=== PATIENT | female | born 1995 | race American Indian/Alaskan Native ===

== ENCOUNTER 2020-10-16 21:33 | Inpatient (IN) | payer MEDICAID ==
[2020-10-16 23:43] LABS: Hematocrit 33.9 % (30.3-42.9); Hemoglobin 11.4 gm/dl (10.1-14.3); Mean Corpuscular HGB Conc 34 % (30-34); Mean Corpuscular Volume 82 fl (79-97); Platelet Count 424 K/mm3 (140-440); Red Blood Count 4.15 M/mm3 (3.65-5.03); Red Cell Distribution Width 16.8 % (13.2-15.2)
[2020-10-17] MEDS ORDERED: LIDOCAINE (2%) 20 MG/1 ML VIAL 20 ML MDV INFILTRATI ONE (00:09)
[2020-10-17] MEDS ORDERED: miSOPROStol 200 MCG TAB PR PRN (00:09)
[2020-10-17] MEDS ORDERED: AMPICILLIN/NS 2 GM/100 ML 2 GM/100 ML BAG IV ONE ×2 (00:09→06:37)
[2020-10-17] MEDS ORDERED: MINERAL OIL 30 ML ORAL LIQD PO PRN (00:09)
[2020-10-17] MEDS ORDERED: TERBUTALINE 1 MG/1 ML INJ SUB-Q PRN (00:09)
[2020-10-17] MEDS ORDERED: LOPERAMIDE 2 MG CAP PO PRN (00:09)
[2020-10-17] MEDS ORDERED: ePHEDrine SULFATE 50 MG/1 ML INJ IV PRN (00:09)
[2020-10-17] MEDS ORDERED: METHYLERGONOVINE MALEATE 0.2 MG/ML VIAL IM PRN (00:09)
[2020-10-17] MEDS ORDERED: BUTORPHANOL 2 MG/1 ML INJ IV PRN (00:09)
[2020-10-17] MEDS ORDERED: OXYTOCIN 10 UNIT/1 ML INJ IM PRN (00:09)
[2020-10-17] MEDS ORDERED: fentaNYL 100 MCG/2 ML INJ IV PRN (00:09)
[2020-10-17] MEDS ORDERED: CARBOPROST TROMETHAMINE 250 MCG/1 ML INJ IM PRN (00:09)
[2020-10-17] MEDS: BUTORPHANOL 2 MG/1 ML INJ IV PRN ×2 (00:22→02:54)
[2020-10-17] MEDS: LACTATED RINGERS 1,000 ML IV SCH ×5 (00:27→12:40)
[2020-10-17] MEDS ORDERED: OXYTOCIN DRIP 30 UNITS/500 ML BAG IV SCH ×2 (01:00)
[2020-10-17] MEDS ORDERED: NALOXONE 2 MG/2 ML INJ IV PRN (07:16)
--- NOTE | 2020-10-17 07:16 | Anesthesia Consultation ---
Anesthesia Consult and Med Hx Date of service: 10/17/20 - Airway Anesthetic Teeth Evaluation: Good ROM Head & Neck: Adequate Mental/Hyoid Distance: Adequate Mallampati Class: Class II Intubation Access Assessment: Probably Good - Pulmonary Exam CTA: Yes - Cardiac Exam Cardiac Exam: RRR - Pre-Operative Health Status ASA Pre-Surgery Classification: ASA2 Proposed Anesthetic Plan: Epidural - Pulmonary Hx Asthma: No COPD: No Hx Pneumonia: No - Cardiovascular System Hx Hypertension: No - Central Nervous System Hx Seizures: No Hx Psychiatric Problems: No (ANXIETY) - Endocrine Hx Renal Disease: No Hx End Stage Renal Disease: No Hx Hypothyroidism: No Hx Hyperthyroidism: No - Hematic Hx Anemia: No Hx Sickle Cell Disease: No - Other Systems Hx Alcohol Use: No
[2020-10-17] MEDS ORDERED: fentaNYL-BUPIV 2 MCG/ML-0.125% 200 MCG/100 ML BAG EPIDURAL SCH (08:00)
[2020-10-17] MEDS: ePHEDrine SULFATE 50 MG/1 ML INJ IV PRN ×3 (08:08→08:33)
--- NOTE | 2020-10-17 08:14 | Progress Note ---
Labor Epidural - Labor Epidural Start Time: 07:25 Stop Time: 07:52 Performed by:: JOYCE COSTELLO Procedure: Patient is requesting epidural for labor pain. H&P, and labs reviewed. Procedure explained, questions answered, consent obtained. Patient in sitting position with blood pressure cuff and pulse ox on and working. Timeout performed immediately before start of procedure. Sterile chlorahexadine 0.5% prep/drape. 3 mL 1% lidocaine skin wheal at L[3]-L[4]. 18-gauge [employer] epidural needle advanced to [id number] with saline at [7] cm. Epidural catheter advanced to [12] cm, negative aspiration for blood and csf, negative test dose 3 ml 1.5% lidocaine with epinephrine. Epidural dexmedetomidine [30] mcg administered. Sterile steri-strips and tegaderm applied, followed by tape reinforcement. Patient tolerated procedure well. Sima ORO
[2020-10-17] MEDS ORDERED: AMPICILLIN/NS 1 GM/50 ML 1 GM/50 ML BAG IV SCH (11:00)
--- NOTE | 2020-10-17 13:47 | History and Physical Report ---
History of Present Illness Date of examination: 10/17/20 Date of admission: 10/16/20 21:43 Chief complaint: I am having contractions History of present illness: Patient is 25-year-old 1 para 0 presents at 40-5/7 weeks for induction of labor secondary to oligohydramnios found on ultrasound. Prior to presenting to the hospital she began having contractions as well. Her course was complicated by late presentation to care at 22 weeks. Labs have been otherwise normal. Her GBS is positive. She has had no additional complaints with this . Past History Past Medical History: no pertinent history, other (anxiety) Past Surgical History: no surgical history Family/Genetic History: none Social history: - Obstetrical History Expected Date of Delivery: 10/11/20 Actual Gestation: 40 Week(s) 6 Day(s) : 1 Para: 0 Medications and Allergies Allergies Allergy/AdvReac Type Severity Reaction Status Date / Time No Known Allergies Allergy Verified 10/17/20 00:17 Home Medications Medication Instructions Recorded Confirmed Last Taken Type One Daily Tablet 1 tab PO DAILY 10/16/20 10/16/20 Unknown History Active Meds: Active Medications Butorphanol Tartrate (Butorphanol 2 Mg/1 Ml Inj) 1 mg IV Q2H PRN PRN Reason: Pain, Moderate(4-6) LABOR PAIN Butorphanol Tartrate (Butorphanol 2 Mg/1 Ml Inj) 2 mg IV Q2H PRN PRN Reason: Pain , Severe (7-10) Last Admin: 10/17/20 02:54 Dose: 2 mg Documented by: Carboprost Tromethamine (Carboprost Tromethamine 250 Mcg/1 Ml Inj) 250 mcg IM ONCE PRN PRN Reason: Uterine Bleeding Fentanyl (Fentanyl 100 Mcg/2 Ml Inj) 100 mcg IV Q2H PRN PRN Reason: Pain,Severe (7-10) LABOR PAIN Last Admin: 10/17/20 06:30 Dose: 100 mcg Documented by: Oxytocin/Sodium Chloride (Pitocin/Ns 30 Unit/500ml) 30 units in 500 mls @ 2 mls/hr IV TITR [facility]; Protocol Last Titration: 10/17/20 13:17 Dose: 12 ml/hr, 12 mls/hr Documented by: Lactated Ringer's (Lactated Ringers) 1,000 mls @ 125 mls/hr IV DIRECT [facility]YN Last Admin: 10/17/20 12:40 Dose: 125 mls/hr Documented by: Oxytocin/Sodium Chloride (Pitocin/Ns 30 Unit/500ml) 30 units in 500 mls @ 40 mls/hr IV TITR [facility]; Protocol Ampicillin Sodium (Ampicillin/Ns 1 Gm/50 Ml) 1 gm in 50 mls @ 100 mls/hr IV Q4H [facility]; Protocol Last Admin: 10/17/20 11:23 Dose: 100 mls/hr Documented by: Fentanyl/Bupivacaine/Sodium Chlor (Fentanyl-Bupiv 2 Mcg/Ml-0.125%) 200 mcg in 100 mls @ 12 mls/hr EPIDURAL TITR [facility]; Protocol Last Admin: 10/17/20 08:03 Dose: 12 mls/hr Documented by: Loperamide HCl (Loperamide 2 Mg Cap) 2 mg PO ONCE PRN PRN Reason: give with Hemabate Methylergonovine Maleate (Methylergonovine Maleate 0.2 Mg/Ml Vial) 0.2 mg IM ONCE PRN PRN Reason: Uterine Bleeding Mineral Oil (Mineral Oil 30 Ml Oral Liqd) 30 ml PO QHS PRN PRN Reason: Constipation Misoprostol (Misoprostol 200 Mcg Tab) 800 mcg VT ONCE PRN PRN Reason: Uterine Bleeding Naloxone HCl (Naloxone 2 Mg/2 Ml Inj) 0.2 mg IV Q5M PRN PRN Reason: Respiratory sedation Oxytocin (Oxytocin 10 Unit/1 Ml Inj) 10 unit IM ONCE PRN PRN Reason: Uterine Bleeding Terbutaline Sulfate (Terbutaline 1 Mg/1 Ml Inj) 0.25 mg SUB-Q ONCE PRN PRN Reason: Hyperstimulation/Hypertonicity Review of Systems All systems: negative Constitutional: weight gain Genitourinary: contractions - Vital Signs Vital signs: Vital Signs Pulse Pulse Ox 56 L 90 10/16/20 22:00 10/16/20 22:00 Temp Pulse Resp BP Pulse Ox 97.4 F L 80 20 104/52 100 10/17/20 13:23 10/17/20 13:44 10/17/20 09:11 10/17/20 13:37 10/17/20 13:44 - Physical Exam Breasts: Positive: deferred Cardiovascular: Regular rate, Normal S1, Normal S2 Lungs: Positive: Clear to auscultation, Normal air movement Abdomen: Positive: normal appearance, soft, normal bowel sounds. Negative: distention, tenderness Genitourinary (Female): Positive: normal external genitalia, normal perenium Vulva: both: normal Vagina: Positive: normal moisture. Negative: discharge Cervix: Negative: lesion, discharge Uterus: Positive: normal size, normal contour Adnexa: both: normal Anus/Rectum: Positive: normal perianal skin, heme negative. Negative: rectal mass, hemorrhoids Extremities: Deep Tendon Reflex Grade: Normal +2 - Obstetrical FHR: auscultation normal Cervical Dilatation: 1.5 Cervical Effacement Percentage: 80 station: -2 Uterine Contraction Pattern: Regular Results Result Diagrams: 10/16/20 22:50 Abnormal lab results 10/16/20 Range/Units 22:50 RDW 16.8 H (13.2-15.2) % All other labs normal. Assessment and Plan IUP at 40-5/7 weeks here for augmentation of labor/induction secondary to oligohydramnios in early phase labor. Will admit for same. We will begin ampicillin for GBS treatment. Srom when able. Anticipate .
--- NOTE | 2020-10-17 16:17 | Procedure Note ---
OB Delivery Note - Delivery Date of Delivery: 10/17/20 Surgeon: CLARISA SERNA Estimated blood loss: 200cc - Vaginal Delivery presentation: vertex Delivery position: OA Intrapartum events: none Delivery induction: none Delivery augmentation: rupture of membranes, pitocin Delivery monitor: external FHT, external uterine Route of delivery: Delivery placenta: spontaneous Delivery cord: 3 umbilical vessels Episiotomy: none Delivery laceration: none Anesthesia: none, epidural Delivery comments: Viable male delivered over intact perineum without difficulty. Weight 7 pounds 13 ounces, 3541 g. No nuchal cord noted. had spontaneous cry and was placed on maternal abdomen. Cord was clamped and cut when done pulsating. Placenta was delivered spontaneously and intact with three-vessel cord. No lacerations were noted. There was excellent hemostasis. The patient tolerated procedure well. - Infant A at 1 minute: 8 at 5 minutes: 9 (7 pounds 13 ounces) Infant Gender: Male
[2020-10-17] MEDS ORDERED: PROMETHAZINE 25 MG TAB PO PRN (18:35)
[2020-10-17] MEDS ORDERED: PROMETHAZINE 25 MG RECT SUPP PR PRN (18:35)
[2020-10-17] MEDS ORDERED: MAGNESIUM HYDROXIDE (MOM) ORAL LIQD UDC PO PRN (18:35)
[2020-10-17] MEDS ORDERED: LANOLIN/ZINC/DIMETHICONE (LANSINOH) 7 GM TP PRN (18:35)
[2020-10-17] MEDS ORDERED: diphenhydrAMINE 25 MG CAP PO PRN (18:35)
[2020-10-17] MEDS ORDERED: WITCH HAZEL/ GLYCERIN PAD TP PRN (18:35)
[2020-10-17] MEDS ORDERED: ONDANSETRON 4 MG/2 ML INJ IV PRN (18:35)
[2020-10-17] MEDS: HYDROcodone/ACETAMINOPHEN 5-325 MG TAB PO PRN (18:47)
[2020-10-17] MEDS: IBUPROFEN 600 MG TAB PO SCH (22:15)
[2020-10-17] MEDS: DOCUSATE SODIUM 100 MG CAP PO SCH (22:16)
[2020-10-18] MEDS: IBUPROFEN 600 MG TAB PO SCH ×4 (05:35→23:12)
[2020-10-18] MEDS: HYDROcodone/ACETAMINOPHEN 5-325 MG TAB PO PRN ×2 (05:56→14:27)
[2020-10-18 06:33] LABS: Hematocrit 28.9 % (30.3-42.9); Hemoglobin 9.5 gm/dl (10.1-14.3)
--- NOTE | 2020-10-18 10:13 | Post Anesthesia Evaluation ---
- Post Anesthesia Evaluation Patient Participated: Yes Airway Patent: Yes Stable Respiratory Function: Yes Nausea/Vomiting: No Temp > 96.8F: Yes Pain Manageable: Yes Adequeate Hydration: Yes Anesthesia Complications: No Block Receding Appropriately: Yes
[2020-10-18] MEDS: PRENATAL VIT27-FE FUMARATE-FOLIC ACID VIT TAB PO SCH (14:27)
--- NOTE | 2020-10-18 14:35 | Progress Note ---
Assessment and Plan PPD 1 s/p . Pt is well. Baby is doing well but is unable to be discharged today. Subjective - Subjective Date of service: 10/18/20 Interval history: Pt is PPD 1 s/p . Patient having complaint of back pain. Patient reports: appetite normal, voiding normally : doing well Objective - Vital Signs Latest vital signs: Vital Signs Temp Pulse Resp BP BP Pulse Ox 10/18/20 08:10 97.9 F 73 20 110/76 10/18/20 00:45 97.7 F 86 20 127/68 100 10/17/20 18:15 97.9 F 86 17 109/56 100 10/17/20 17:48 97.9 F 90 14 104/62 98 10/17/20 17:47 95 H 104/62 10/17/20 17:44 94 H 100 10/17/20 17:39 90 100 10/17/20 17:34 99 H 100 10/17/20 17:29 91 H 100 10/17/20 17:24 103 H 100 10/17/20 17:19 104 H 100 10/17/20 17:14 106 H 100 10/17/20 17:09 104 H 100 10/17/20 17:04 104 H 100 10/17/20 16:59 96 H 100 10/17/20 16:54 93 H 99 10/17/20 16:52 101 H 133/68 10/17/20 16:49 97 H 100 10/17/20 16:44 87 100 10/17/20 16:39 91 H 98 10/17/20 16:37 116 H 134/73 10/17/20 16:34 98 H 99 10/17/20 16:29 87 100 10/17/20 16:24 103 H 100 10/17/20 16:23 99 H 91 10/17/20 16:22 98 H 126/64 10/17/20 16:19 93 H 98 10/17/20 16:16 95 H 92 10/17/20 16:14 95 H 100 10/17/20 16:09 99 H 100 10/17/20 16:08 85 121/58 10/17/20 16:04 95 H 100 10/17/20 16:02 98 H 140/60 10/17/20 15:59 97 H 94 10/17/20 15:54 97 H 100 10/17/20 15:52 100 H 122/65 10/17/20 15:51 103 H 116/65 10/17/20 15:49 103 H 100 10/17/20 15:44 122 H 100 10/17/20 15:39 142 H 100 10/17/20 15:34 144 H 100 10/17/20 15:29 133 H 100 10/17/20 15:24 148 H 100 10/17/20 15:23 113 H 91 10/17/20 15:19 117 H 100 10/17/20 15:14 122 H 100 10/17/20 15:11 135 H 85 10/17/20 15:09 121 H 100 10/17/20 15:04 118 H 100 10/17/20 14:59 140 H 100 10/17/20 14:54 126 H 100 10/17/20 14:53 134 H 113/68 10/17/20 14:49 138 H 100 10/17/20 14:44 112 H 100 10/17/20 14:39 130 H 100 10/17/20 14:34 100 H 100 Intake and Output 10/17/20 10/18/20 10/18/20 22:59 06:59 14:59 Intake Total 240 240 Output Total 700 800 Balance -700 -560 240 Intake: Oral 240 240 Output: Urine 700 800 Void 700 800 Other: Total, Intake Amount 240 240 Total, Output Amount 700 800 # Voids Void 3 1 - Exam Breasts: Present: deferred Cardiovascular: Present: Regular rate, Normal S1, Normal S2 Lungs: Present: Clear to auscultation, Normal air movement Abdomen: Present: normal appearance, soft, normal bowel sounds Uterus: Present: normal, firm Extremities: Present: normal - Labs Labs: Abnormal lab results 10/18/20 Range/Units 05:31 Hgb 9.5 L (10.1-14.3) gm/dl Hct 28.9 L (30.3-42.9) %
--- NOTE | 2020-10-18 14:38 | Discharge Summary ---
Providers - Providers Date of Admission: 10/16/20 21:43 Date of discharge: 10/19/20 Attending physician: CLARISA SERNA Primary care physician: KRYSTLE ELLIS MD Hospitalization Reason for admission: induction of labor Delivery: Laceration: 1st degree Other procedures: none complications: none Discharge diagnosis: IUP at term delivered [place] baby: male Hospital course: unremarkable Condition at discharge: Good Disposition: DC-01 TO HOME OR SELFCARE Plan - Provider Discharge Summary Activity: routine, no sex for 6 weeks, no heavy lifting 4 weeks, no strenuous exercise Diet: routine Instructions: routine Additional instructions: [] Smoking cessation referral if applicable(refer to patient education folder for contact #) [] Refer to [facility] Booklet Call your doctor immediately for: * Fever > 100.5 * Heavy vaginal bleeding ( >1 pad per hour) * Severe persistent headache * Shortness of breath * Reddened, hot, painful area to leg or breast * Drainage or odor from incision. * Keep incision clean and dry at all times and follow doctor's instructions regarding bathing/showering - Follow up plan Follow up: PRIMARY CAREMD [Primary Care Provider] - 6 Weeks
[2020-10-18] MEDS: DOCUSATE SODIUM 100 MG CAP PO SCH (18:58)
[2020-10-19] MEDS: DOCUSATE SODIUM 100 MG CAP PO SCH (00:13)
[2020-10-19] MEDS: IBUPROFEN 600 MG TAB PO SCH ×2 (05:06→11:21)
[2020-10-19] MEDS ORDERED: TETANUS,DIPH,PERTUSS(ACELL) VACCINE 0.5 ML SYRINGE IM ONE (06:00)
[2020-10-19] MEDS: PRENATAL VIT27-FE FUMARATE-FOLIC ACID VIT TAB PO SCH (11:21)
[2020-10-19 13:48] VITALS: BP 116/79
== END 2020-10-19 14:15 | disposition home or self-care (01) | DRG 775 ==
LOC: TRG 21:33 → LD 21:43 → OB 10-17 18:06
PROVIDERS: ADMIT Obstetrics & Gynecology; ATTEND Obstetrics & Gynecology
PROC: 3E033VJ Introduction of Other Hormone into Peripheral Vein, Percutaneous Approach (ICD-10-PCS; principal; 2020-10-17)
PROC: 10E0XZZ Delivery of Products of Conception, External Approach (ICD-10-PCS; 2020-10-17)
PROC: 3E0R3BZ Introduction of Anesthetic Agent into Spinal Canal, Percutaneous Approach (ICD-10-PCS; 2020-10-17)
PROC: 00HU33Z Insertion of Infusion Device into Spinal Canal, Percutaneous Approach (ICD-10-PCS; 2020-10-17)
DX: O41.03X0 Oligohydramnios, third trimester, not applicable or unspecified (principal); Z37.0 Single live birth; Z3A.40 40 weeks gestation of pregnancy; Z20.822 Contact with and (suspected) exposure to COVID-19; O99.344 Other mental disorders complicating childbirth; O99.824 Streptococcus B carrier state complicating childbirth; O70.0 First degree perineal laceration during delivery
CPT/HCPCS: 36415; 85014; 85018; 85027; 86850; 86900; 86901; 90471; 90715; G0378; A6250; J0290; J0595; J2590; J3010; J7120; U0003

== ENCOUNTER 2021-02-27 15:00 | Emergency (ER) | payer MEDICAID ==
[2021-02-27 15:16] VITALS: BP 125/68
--- NOTE | 2021-02-27 15:53 | Emergency Department Report ---
ED Fall HPI - General Chief Complaint: Fall Stated Complaint: FELL ON HEAD AND FACE Time Seen by Provider: 02/27/21 15:05 Source: patient Mode of arrival: Ambulatory - History of Present Illness Initial Comments: 25-year-old female presents to the emergency room for left-sided facial trauma. Patient states that she was in the shower and had slipped and landed on the metal portion of the shower on her left side of her face. Patient comes in reporting she has swelling pain and felt like she was going to pass out. Patient is a new time mom and is breast-feeding and was trying to 10 to her child when she slipped out the shower. Patient has no allergies to medicine. She is currently breast-feeding. She is not taking any medications on a daily basis. She does report she suffers from anxiety. MD Complaint: fall -: This afternoon Fall From: standing (In the shower.) When Fall Occurred: [address] Fall Occurred: home Loss of Consciousness: none Prolonged Down Time?: no Symptoms Prior to Fall: none Location: face Severity scale (0 -10): 8 Quality: sharp, stabbing, crushing Context: tripped/slipped Associated Symptoms: denies - Related Data Home Medications Medication Instructions Recorded Confirmed Last Taken One Daily Tablet 1 tab PO DAILY 10/16/20 10/16/20 Unknown Previous Rx's Medication Instructions Recorded Last Taken Type HYDROcodone/APAP 5-325 [Schroeder 1 each PO Q6HR PRN #15 tablet 10/18/20 Unknown Rx 5/325] Ibuprofen [Motrin] 800 mg PO Q8HR PRN #40 tablet 10/18/20 Unknown Rx Acetaminophen [Acetaminophen 8 650 mg PO TID PRN #21 tablet.er 02/27/21 Unknown Rx Hour] HYDROcodone/APAP 5-325 [Schroeder 1 each PO Q6HR PRN #12 tablet 02/27/21 Unknown Rx 5/325] Allergies Allergy/AdvReac Type Severity Reaction Status Date / Time No Known Allergies Allergy Verified 10/17/20 00:17 ED Review of Systems ROS: Stated complaint: FELL ON HEAD AND FACE Other details as noted in HPI Comment: All other systems reviewed and negative ED Past Medical Hx - Past Medical History Previous Medical History?: Yes Hx Hypertension: No Hx Congestive Heart Failure: No Hx Diabetes: No Hx Deep Vein Thrombosis: No Hx Renal Disease: No Hx Sickle Cell Disease: No Hx Seizures: No Hx Asthma: No Hx COPD: No - Surgical History Past Surgical History?: No - Social History Smoking Status: Never Smoker - Medications Home Medications: Home Medications Medication Instructions Recorded Confirmed Last Taken Type One Daily Tablet 1 tab PO DAILY 10/16/20 10/16/20 Unknown History HYDROcodone/APAP 5-325 [Schroeder 1 each PO Q6HR PRN #15 tablet 10/18/20 Unknown Rx 5/325] Ibuprofen [Motrin] 800 mg PO Q8HR PRN #40 tablet 10/18/20 Unknown Rx Acetaminophen [Acetaminophen 8 650 mg PO TID PRN #21 tablet.er 02/27/21 Unknown Rx Hour] HYDROcodone/APAP 5-325 [Schroeder 1 each PO Q6HR PRN #12 tablet 02/27/21 Unknown Rx 5/325] ED Physical Exam - General Limitations: No Limitations General appearance: alert, in no apparent distress - Expanded Head Exam Expanded Head exam: Present: racoon eyes, general tenderness - Eye Eye exam: Present: normal appearance, PERRL - ENT ENT exam: Present: mucous membranes moist - Neck Neck exam: Present: normal inspection - Respiratory Respiratory exam: Present: normal lung sounds bilaterally. Absent: respiratory distress - Cardiovascular Cardiovascular Exam: Present: regular rate, normal rhythm. Absent: systolic murmur, diastolic murmur, rubs, gallop - Back Exam Back exam: Present: normal inspection, full ROM - Neurological Exam Neurological exam: Present: alert, oriented X3, normal gait - Psychiatric Psychiatric exam: Present: normal affect, normal mood - Skin Skin exam: Present: warm, dry, intact, normal color. Absent: rash ED Course Vital Signs 02/27/21 15:13 Temperature 98.7 F Pulse Rate 76 Respiratory 18 Rate Blood Pressure 125/68 O2 Sat by Pulse 99 Oximetry ED Medical Decision Making - Radiology Data Radiology results: report reviewed Study Comments [facility] [address] [place] [address] Cat Scan Report Signed Patient: MAYLIN SOLIMAN MR#: [id number] : 1995 Acct:[id number] Age/Sex: 25 / F ADM Date: 02/27/21 Loc: ED Attending Dr: Ordering Physician: JAS MCDONOUGH Date of Service: 02/27/21 Procedure(s): CT facial bones wo con Accession Number(s): [id number] cc: JAS MCDONOUGH CT facial bones wo con INDICATION / CLINICAL INFORMATION: 25 years Female; Facial trauma to the left side of face. TECHNIQUE: Thin cut axial images obtained. Sagittal and coronal reconstructions performed. All CT scans at this location are performed using CT dose reduction for ALARA by means of automated exposure control. COMPARISON: None available. FINDINGS: Subcutaneous soft tissue swelling is seen in the left malar region. There is a buckle fracture of the lateral wall the left maxillary antrum-apex directed laterally. Blood products are seen in the left maxillary antrum, with an air-fluid level noted. No other signs of facial bone fracture appreciated. Mucosal thickening seen in the right maxillary antrum. IMPRESSION: 1. Buckle fracture of the lateral wall of the left maxillary antrum noted. Signer Name: Lorne Neely MD, III Signed: 02/27/2021 4:38 PM Workstation Name: [email or web address] Transcribed By: HR Dictated By: Lorne Neely MD Electronically Authenticated By: Lorne Neely MD Signed Date/Time: 02/27/21 163 DD/ 1634 TD/TT: [place] [address] Cat Scan Report Signed Patient: MAYLIN SOLIMAN MR#: [id number] : 1995 Acct:[id number] Age/Sex: 25 / F ADM Date: 02/27/21 Loc: ED Attending Dr: Ordering Physician: JAS MCDONOUGH Date of Service: 02/27/21 Procedure(s): CT cervical spine wo con Accession Number(s): [id number] cc: JAS MCDONOUGH CT cervical spine wo con INDICATION / CLINICAL INFORMATION: 25 years Female; Fall out of shower. TECHNIQUE: Axial CT images of the cervical spine were obtained. Sagittal and coronal reformatted images were produced. All CT scans at this location are performed using CT dose reduction for ALARA by means of automated exposure control. COMPARISON: None available. FINDINGS: POST-SURGICAL CHANGES: None. ALIGNMENT: Straightening of the cervical spine noted, which may be related to patient positioning. VERTEBRAE: No signs of fracture. Vertebral bodies are grossly normal in height throughout. No significant facet joint disease or osseous foraminal narrowing appreciated. INTRAVERTEBRAL DISCS: Disc spaces are fairly well-maintained throughout without significant canal stenosis. PARASPINAL SOFT TISSUES: No significant abnormality. ADDITIONAL FINDINGS: Left maxillary wall fracture noted. Please see report from facial CT, performed same day, for pertinent information. IMPRESSION: 1. No signs of acute bony trauma to the cervical spine. Signer Name: Lorne Neely MD, III Signed: 02/27/2021 4:41 PM Workstation Name: [email or web address] Transcribed By: HR Dictated By: Lorne Neely MD Electronically Authenticated By: Lorne Neely MD Signed Date/Time: 02/27/211640 DD/ 38 TD/TT: - Medical Decision Making 25-year-old female presents to the emergency room for left-sided facial trauma. Patient states that she was in the shower and had slipped and landed on the metal portion of the shower on her left side of her face. Patient comes in reporting she has swelling pain and felt like she was going to pass out. Patient is a new time mom and is breast-feeding and was trying to 10 to her child when she slipped out the shower. Patient has no allergies to medicine. She is currently breast-feeding. She is not taking any medications on a daily basis. She does report she suffers from anxiety. CT facial bones and CT neck has been ordered. CT scan of face showed a left maxillary buckle fracture with moderate amount of blood products. Patient will be discharged on Schroeder discussed that she needs to stop breast-feeding while taking narcotics. Increase your fluids. Ice to her face. Rest. Critical care attestation.: If time is entered above; I have spent that time in minutes in the direct care of this critically ill patient, excluding procedure time. ED Disposition Clinical Impression: Facial fracture due to fall Disposition: HOME / SELF CARE / HOMELESS Is pt being admited?: No Does the pt Need Aspirin: No Condition: Stable Additional Instructions: CT of your face shows a buckle fracture to your maxillary on the left side. I recommend ice to your injury. Tylenol for pain management. Follow-up with your primary care provider. Prescriptions: Acetaminophen [Acetaminophen 8 Hour] 650 mg PO TID PRN #21 tablet.er PRN Reason: Pain , Severe (7-10) HYDROcodone/APAP 5-325 [Schroeder 5/325] 1 each PO Q6HR PRN #12 tablet PRN Reason: Pain Referrals: PRIMARY CARE, [Primary Care Provider] - 3-5 Days Your, primary care provider [Other] - 3-5 Days Time of Disposition: 17:13
--- NOTE | 2021-02-27 16:42 | Cat Scan Report ---
CT facial bones wo con INDICATION / CLINICAL INFORMATION: 25 years Female; Facial trauma to the left side of face. TECHNIQUE: Thin cut axial images obtained. Sagittal and coronal reconstructions performed. All CT scans at this location are performed using CT dose reduction for ALARA by means of automated exposure control. COMPARISON: None available. FINDINGS: Subcutaneous soft tissue swelling is seen in the left malar region. There is a buckle fracture of the lateral wall the left maxillary antrum-apex directed laterally. Blo od products are seen in the left maxillary antrum, with an air-fluid level noted. No other signs of facial bone fracture appreciated. Mucosal thickening seen in the right maxillary antrum. IMPRESSION: 1. Buckle fracture of the lateral wall of the left maxillary antrum noted. Signer Name: Lorne Neely MD, III Signed: 02/27/2021 4:38 PM Workstation Name: [email or web address]
--- NOTE | 2021-02-27 16:46 | Cat Scan Report ---
CT cervical spine wo con INDICATION / CLINICAL INFORMATION: 25 years Female; Fall out of shower. TECHNIQUE: Axial CT images of the cervical spine were obtained. Sagittal and coronal reformatted images were pr oduced. All CT scans at this location are performed using CT dose reduction for ALARA by means of aut omated exposure control. COMPARISON: None available. FINDINGS: POST-SURGICAL CHANGES: None. ALIGNMENT: Straightening of the cervical spine noted, which may be related to patient positioning. VERTEBRAE: No signs of fracture. Vertebral bodies are grossly normal in height throughout. No signif icant facet joint disease or osseous foraminal narrowing appreciated. INTRAVERTEBRAL DISCS: Disc spaces are fairly well-maintained throughout without significant canal cortez nosis. PARASPINAL SOFT TISSUES: No significant abnormality. ADDITIONAL FINDINGS: Left maxillary wall fracture noted. Please see report from facial CT, performed same day, for pertinent information. IMPRESSION: 1. No signs of acute bony trauma to the cervical spine. Signer Name: Lorne Neely MD, III Signed: 02/27/2021 4:41 PM Workstation Name: [id number]
== END 2021-02-27 18:09 | disposition home or self-care (01) ==
LOC: ED 15:00
DX: S02.40DA Maxillary fracture, left side, initial encounter for closed fracture (principal); W18.2XXA Fall in (into) shower or empty bathtub, initial encounter; Y93.89 Activity, other specified; Y92.89 Other specified places as the place of occurrence of the external cause; Y99.8 Other external cause status
CPT/HCPCS: 70486; 72125; 99283